=== PATIENT | female | born 1970 | race Caucasian/White ===

== ENCOUNTER 2016-06-24 12:21 | Emergency (ER) | payer OTHER ==
[2016-06-24 12:36] VITALS: RESP 16
[2016-06-24 12:40] VITALS: TEMP 97.7
[2016-06-24] MEDS ORDERED: LET GEL TOPICAL 1 EA SYR TP ONE (13:38)
--- NOTE | 2016-06-24 13:55 | UCPHY ---
H & P Time Seen by Provider: 06/24/16 12:35 Patient Type: New HPI/ROS: 46-year-old female was trying to remove a zip tie from a toy a when she accidentally stabbed herself in the left wrist with a knife, she was using a kitchen knife and the tip appeared to be missing after the injury although she is not sure whether this tip was ever there She presents with small puncture wound to her left wrist with concern for possible retention of the tip of the knife as a foreign body. Review of systems As per HPI General no fever no chills no weakness HEENT no eye pain no eye discharge. No eye redness, no sore throat Respiratory no cough, no shortness of breath Cardiac no chest pain, no peripheral edema GI no abdominal pain, no diarrhea, no constipation, no nausea, no vomiting no flank pain, no hematuria, no dysuria Musculoskeletal no myalgias, no joint pain Heme no easy bruising, no easy bleeding Endo no polyuria, no polydipsia Skin no rashes, no pruritus Neuro no syncope, no dizziness, no headaches Psych is no suicidal ideation, no homicidal ideation Past Medical/Surgical History: Hypothyroid Social History: Denies excessive alcohol or drug use Smoking Status: Never smoked Physical Exam: 46-year-old female Alert and oriented in no acute distress nontoxic appearance, afebrile Atraumatic normocephalic Neck no JVD Lungs clear to auscultation, no respiratory distress Heart regular rate and rhythm Extremities no cyanosis clubbing edema Left wrist 8 mm laceration at anterior volar wrist crease, no palpable foreign body Good radial and ulnar pulses good movement of her entire hand as well as all digits good capillary refill sensation intact Constitutional: Initial Vital Signs Temperature (C) 36.5 C 06/24/16 12:32 Heart Rate 50 L 06/24/16 12:32 Respiratory Rate 16 06/24/16 12:32 Blood Pressure 128/75 H 06/24/16 12:32 O2 Sat (%) 95 06/24/16 12:32 O2 Delivery Mode Room Air Allergies/Adverse Reactions: Penicillins Allergy (Verified 06/24/16 12:36) Home Medications: Medication Instructions Recorded Levothyroxine 05/30/13 Cephalexin 500 mg PO BID #14 tablet 06/24/16 Medical Decision Making - Diagnostics Imaging Results: Imaging Impressions Wrist X-Ray 06/24/16 13:02 Impression: No knife tip identified. ED Course/Re-evaluation: Patient seen and evaluated for puncture wound to left wrist with possible foreign body X-ray negative for foreign body Exam consistent with small puncture wound with no deep injury Impression Left wrist puncture wound Plan Wound care provided in urgent care Patient home on cephalexin Follow up with primary care Return as needed - Data Points Medications Given: Discontinued Medications Tetracaine/Epinephrine/Lidocaine (Let Gel Topical) 1 ea TP EDNOW ONE Stop: 06/24/16 13:39 Last Admin: 06/24/16 13:40 Dose: 1 ea Departure - Departure Disposition: Home, Routine, Self-Care Clinical Impression: Puncture wound of left wrist Condition: Good Instructions: Puncture Wound (ED) Referrals: Mary Kate Baca MD [Primary Care Provider] - As per Instructions Prescriptions: Cephalexin 500 mg PO BID #14 tablet - PQRS PQRS Measurement: na
[2016-06-24 14:10] VITALS: BP 125/77; PULSE 56; O2SAT 96
== END 2016-06-24 14:10 | disposition home or self-care (01) ==
LOC: CED 12:21
DX: S61.532A Puncture wound without foreign body of left wrist, initial encounter (principal); W26.0XXA Contact with knife, initial encounter; Y93.89 Activity, other specified
CPT/HCPCS: 73100-PO; G0463-PO

== ENCOUNTER → 2017-02-25 | Outpatient (CLI) | payer OTHER | LOC: BMCIMAGING 11:44 | PROVIDERS: ATTEND Internal Medicine | DX: R10.9 Unspecified abdominal pain (principal) ==

== ENCOUNTER → 2017-02-25 | Outpatient (CLI) | payer OTHER ==
[~2017-02-25] MED LIST: IOPAMIDOL (ISOVUE-300) 100 ML BTL ONE
== END ==
LOC: FIMAGING 12:55
PROVIDERS: ATTEND Internal Medicine
DX: K59.00 Constipation, unspecified (principal); D25.9 Leiomyoma of uterus, unspecified
CPT/HCPCS: Q9967

== ENCOUNTER → 2017-05-01 | Outpatient (CLI) | payer OTHER | LOC: BMCIMAGING 13:38 | PROVIDERS: ATTEND Physician Assistant Medical | DX: M77.9 Enthesopathy, unspecified (principal) ==

== ENCOUNTER → 2017-06-25 | Outpatient (CLI) | payer OTHER | LOC: BMCIMAGING 11:15 | PROVIDERS: ATTEND Podiatrist Foot & Ankle Surgery | DX: M79.671 Pain in right foot (principal); M24.9 Joint derangement, unspecified; M77.9 Enthesopathy, unspecified ==

== ENCOUNTER 2017-08-05 19:27 | Emergency (ER) | payer OTHER ==
[2017-08-05] MEDS ORDERED: NS 500 ML IV ONE ×2 (19:50→20:51)
--- NOTE | 2017-08-05 20:12 | CPEKG ---
Heart Rate: 47 RR Interval: 1277 P-R Interval: 180 QRSD Interval: 100 QT Interval: 484 QTC Interval: 428 P Chidester: 54 QRS Chidester: 49 T Wave Chidester: 42 EKG Severity - BORDERLINE ECG - EKG Impression: SINUS BRADYCARDIA EKG Impression: PROBABLE LEFT ATRIAL ABNORMALITY Electronically Signed By: Tello Thompson 05-Aug-2017 22:21:45
--- NOTE | 2017-08-05 20:38 | EDPHY ---
H & P Time Seen by Provider: 08/05/17 19:49 HPI/ROS: HPI Near fainting. 47-year-old female by private vehicle. With family. This patient has a history of a total hysterectomy that was done 3 weeks ago. She has not had any complications. She is not taking opiate pain medications. She reports that today she was taking care of her child. She was active and running around the child. She reports prior to coming into the emergency department she had 2 episodes which she describes her head feeling very heavy and she felt lightheaded. She laid down on the floor and put her legs up in the air. She felt better but then tried to stand up and again this lightheadedness took place. She did not faint or fall. She denies any associated headache, palpitations, shortness of breath, chest pain. She is feeling better now. She does report that her heart rate runs low and in the 50s usually. ROS: Constitutional: No fever, no chills. As above. Eyes: No discharge. No changes in vision. ENT: No sore throat. No nasal congestion or rhinorrhea. Respiratory: No cough. No shortness of breath. Cardiac: No chest pain, no palpitations. Gastrointestinal: No abdominal pain, no vomiting, no diarrhea. Genitourinary: No hematuria. No dysuria or increased frequency with urination. Musculoskeletal: No back pain. No neck pain. No myalgias or arthralgias. Skin: No rashes. Neurological: No headache. No focal weakness or altered sensation. Past medical history: She takes levothyroxine for hypothyroid. She is not on any antihypertensive medications. Social history: Nonsmoker. No alcohol. Here with family. Physical Exam: General Appearance: Alert, no distress. This patient is responding to questions appropriately and in full sentences. This patient appears well- hydrated and well-nourished. Eyes: Pupils equal and round no pallor or injection. No lid edema, erythema or injection. Respiratory: There are no retractions, lungs are clear to auscultation with good air movement bilaterally. Cardiovascular: Regular rate and rhythm. Bradycardia. No murmur appreciated. Gastrointestinal: Abdomen is soft and nontender, no masses, bowel sounds normal. No focal tenderness at McBurney's point. No Wilson sign. Neurological: Motor sensory function is grossly intact. Cranial nerves are normal. Gait is normal. Skin: Warm and dry, no rashes. Musculoskeletal: Neck is supple and nontender. Extremities are symmetrical. All joints range without pain or impingement. Psychiatric: No agitation. No depression. Database: EKG: EKG time is 8:10 p.m.; EKG shows a narrow complex normal sinus rhythm with a ventricular rate of 47. The MS, QRS, QT intervals are within normal limits. There are no ST-T wave changes indicative of ischemic or injury pattern. No evidence of right heart strain. No evidence of Brugada syndrome, WPW, hypertrophic cardiomyopathy. Interpreted by me. Imaging: Procedures: Emergency department course: Triage vital signs reviewed. She is moderately hypertensive. Heart rate 58 in triage. Vital signs otherwise normal. IV was placed. She will be given 500 cc of IV normal saline over 1 hr. EKG obtained and reviewed by myself. 10:05 p.m., patient re-evaluated. Resting comfortably at this time. Vital signs reviewed and are normal. She states that her heart rate usually runs in the low to mid 50s. vehicle monitor technician shows a narrow complex sinus rhythm. She has been up to the bathroom and walking around the emergency department without issue. I discussed the results of her workup. She feels comfortable going home and I feel she is safe for discharge at this time. She will follow up with her primary care physician within the next 1-2 days for re-evaluation. Return to emergency department precautions were reviewed with her. All of her questions were answered. She was discharged from the emergency department in good condition. Differential Diagnosis: The differential diagnosis on this patient includes but is not limited to vasovagal syncope, dehydration. Arrhythmia, CVA, hypothyroid state, acute coronary syndrome unlikely. This represents a partial list of diagnoses considered. These considerations are based on history, physical exam, past history, reassessment and diagnostic testing. Smoking Status: Never smoked Constitutional: Initial Vital Signs Temperature (C) 36.7 C 08/05/17 19:40 Heart Rate 58 L 08/05/17 19:40 Respiratory Rate 16 08/05/17 19:40 Blood Pressure 160/84 H 08/05/17 19:40 O2 Sat (%) 95 08/05/17 19:40 O2 Delivery Mode Room Air Allergies/Adverse Reactions: Penicillins Allergy (Verified 08/05/17 19:47) shellfish derived Allergy (Verified 08/05/17 19:48) Home Medications: Medication Instructions Recorded Levothyroxine 05/30/13 Medical Decision Making - Data Points Laboratory Results: 08/05/17 08/05/17 08/05/17 20:14 20:07 20:07 POC Hgb 15.6 gm/dL gm/dL (12.6-16.3) POC Hct 46 % % (38-47) POC Sodium 143 mEq/L mEq/L (135-145) POC Potassium 3.7 mEq/L mEq/L (3.3-5.0) POC Chloride 106 mEq/L mEq/L (97-110) POC BUN 23 mg/dL mg/dL (7-23) POC Creatinine 0.9 mg/dL mg/dL (0.6-1.0) POC Glucose 87 mg/dL mg/dL (70-100) TSH 3.600 uIU/mL uIU/mL (0.465-4.680) Beta HCG, Qual NEGATIVE Medications Given: Discontinued Medications Sodium Chloride (Ns) 500 mls @ 1,000 mls/hr IV EDNOW ONE PRN Reason: Protocol Stop: 08/05/17 20:19 Last Admin: 08/05/17 20:14 Dose: 500 mls Sodium Chloride (Ns) 500 mls @ 0 mls/hr IV ONCE ONE PRN Reason: Wide Open Stop: 08/05/17 20:52 Last Admin: 08/05/17 20:52 Dose: 500 mls Point of Care Test Results: Chemistry 08/05/17 20:14 POC Sodium 143 mEq/L mEq/L (135-145) POC Potassium 3.7 mEq/L mEq/L (3.3-5.0) POC Chloride 106 mEq/L mEq/L (97-110) POC BUN 23 mg/dL mg/dL (7-23) POC Creatinine 0.9 mg/dL mg/dL (0.6-1.0) POC Glucose 87 mg/dL mg/dL (70-100) ISTAT H&H 08/05/17 20:14 POC Hgb 15.6 gm/dL gm/dL (12.6-16.3) POC Hct 46 % % (38-47) Departure - Departure Disposition: Home, Routine, Self-Care Clinical Impression: Near syncope Condition: Good Instructions: Near Syncope (ED) Additional Instructions: Read and follow provided instructions. Follow-up with your primary care physician, Dr. Naye Rosado, in 1-2 days for re-evaluation. Take her medication as prescribed. Keep well hydrated. No strenuous activity until you have been cleared by her primary care physician. Return to the emergency department for return of symptoms, difficulty breathing , palpitations, chest pain or other serious concerns. Referrals: Naye Rosado MD [Primary Care Provider] - As per Instructions
[2017-08-05 22:15] VITALS: BP 145/82
== END 2017-08-05 22:36 | disposition home or self-care (01) ==
DX: R55 Syncope and collapse (principal); E86.9 Volume depletion, unspecified
CPT/HCPCS: 82435-PO; 82565-PO; 82947-PO; 84132-PO; 84295-PO; 84520-PO; 85014-PO

== ENCOUNTER → 2018-05-07 | Outpatient (CLI) | payer OTHER | LOC: FIMAGING 12:01 | PROVIDERS: ATTEND Internal Medicine | DX: Z12.31 Encounter for screening mammogram for malignant neoplasm of breast (principal) ==

== ENCOUNTER → 2018-06-04 | Outpatient (CLI) | payer OTHER | LOC: FIMAGING 14:29 | PROVIDERS: ATTEND Internal Medicine | DX: R92.8 Other abnormal and inconclusive findings on diagnostic imaging of breast (principal) ==